=== PATIENT | female | born 1980 | race Caucasian/White ===

== ENCOUNTER → 2016-08-24 | Outpatient (CLI) | payer BC ==
--- NOTE | 2016-08-24 15:49 | US ---
August 24, [address] Weber and Providers at [facility], Thank you for requesting consultation and a follow up ultrasound for your patient, Mrs. Addison cox. As you know, Farnaz is a 36 year old G 3, P 1011 . Her due date is 11/10/16 by LMP and 12 week ultrasound. Her current gestational age based on this dating is is 28 weeks 6 days. She is se en today for a follow up of renal pelvis dilation. She was seen on 06/30/16 for two ultrasound findi ngs-bilateral pyelectasis and choroid plexus cysts in the setting of reassuring NIPT. After consulta tion with Dr. Langston they were offered and declined invasive testing. ULTRASOUND Number of fetuses: 1 Placental location: Anterior presentation: Cephalic Heart Rate: 139 bpm Cervix: 3.9 cm viewed transabdominally Maximum vertical pocket: 8.0 cm Measurements: Biparietal diameter: 70 mm 28 weeks, 3 days Head circumference: 283 mm 31 weeks, 0 days Abdominal circumference: 260 mm 30 weeks, 2 days Femur length: 53 mm 28 weeks, 3 days Humerus length: 48 mm 28 weeks, 3 days Transcerebellar diameter: 35 mm 29 weeks, 3 days Average age by ultrasound: 29 weeks, 4 days Estimated weight: 1405 gm weight percentile: 62 % ANATOMY anatomy was previously assessed. Today the following structures were visualized and appeared n ormal: Lateral ventricle, choroids, cerebellum, views of the heart, stomach, profile, and bladder. The right renal pelvis is slightly enlarged at 5 mm. The left renal pelvis has improved and is also 5 mm. Both are borderline enlarged for this gestational age. IMPRESSION: 1. Intrauterine at 28 weeks, 6 days; ALLI of 11/10/16. 2. growth is appropriate size for dates. 3. anatomy was previously assessed and today's ultrasound continues to provide reassurance of normal appearing anatomy with borderline bilateral pyelectasis. 4. Normal amniotic fluid volume RECOMMENDATIONS: I was pleased to review today's ultrasound with your patient. I reassured her that growth is normal at the 62 %ile for this gestational age. The amniotic fluid volume is normal. We performed a review of the anatomy which was limited by gestational age and acoustic shadowing which did not revea l any overt abnormalities, but continues to demonstrate borderline renal pelvis dilation bilate rally. I suspect that as the continues and with growth, the pyelectasis will improve . I asked her to return at 34 weeks. If <7 mm, then no follow up is recommended. If > 7m m then the pediatric team should be notified for follow up. Thank you for allowing us the opportunity to evaluate your patient. Should you have any further ques tions or concerns please do not hesitate to contact me. Approximately 15 minutes were spent with the patient and 10 minutes were spent in face to face consu ltation. Sheri Orozco MD Software Engineer [employer] Maternal Medicine Diagnosis Department of Obstetrics & Gynecology [facility] ([place], [place])
--- NOTE | 2016-08-24 18:57 | US ---
Ultrasound Obstetric Follow Up Indication: Advanced maternal age. The estimated gestational age by LMP is 28 weeks and 6 days anila bolton an EDC of 11/10/2016. Comparison: June 2016 Findings: Number: 1 Presentation: Vertex Placental Location: Anterior Cervix: 3.9 cm Amniotic MVP: 8 cm BIOMETRY: Biparietal Diameter: 70.47 mm 28 weeks, 3 days Head Circumference: 282.55 mm 31 weeks, 0 days Abdominal Circumference: 259.94 mm 30 weeks, 2 days Femur Length: 53.40 mm 28 weeks, 3 days Humerus Length: 48.40 mm 28 weeks, 3 days Transcerebellar Diameter: 35.20 mm 29 weeks, 3 days HC/AC: 1.09 (1.05-1.22) FL/BPD: 76% FL/AC: 21% Average Ultrasound Age: 29 weeks, 4 days EDC based on today's average ultrasound age: 411/05/2016 Estimated weight is 1405 gms +/- 205 gms. The estimated weight is at the 62 % based on pr evious dating. ANATOMY: Previous evaluated. FHR 139 bpm. Today's anatomy includes lateral ventricles, heart, stomach, and bladder without abnorma lities. Right renal pelvis slightly enlarged at 5 mm. Left renal pelvis is also slightly enlarged at 5 mm. Impression: 1. Living eisenberg in vertex presentation. 2. Size concordant with dates. 3. Borderline bilateral pelviectasis at 5 mm. 4. Normal amniotic fluid volume. 5. Please see Dr. Sheri Orozco's consult and recommendations.
== END ==
LOC: FIMAGING 14:42
PROVIDERS: ATTEND Obstetrics & Gynecology
DX: O35.9XX0 Maternal care for (suspected) fetal abnormality and damage, unspecified, not applicable or unspecified (principal); O09.523 Supervision of elderly multigravida, third trimester; Z3A.28 28 weeks gestation of pregnancy

== ENCOUNTER → 2016-10-01 | Outpatient (CLI) | payer BC | LOC: FIMAGING 13:29 | PROVIDERS: ATTEND Obstetrics & Gynecology | DX: O09.523 Supervision of elderly multigravida, third trimester (principal); Z3A.34 34 weeks gestation of pregnancy ==

== ENCOUNTER 2016-11-11 20:56 | Inpatient (IN) | payer BC ==
--- NOTE | 2016-11-11 22:30 | GHP ---
[f rep st] PREOP HISTORY AND PHYSICAL DATE OF ADMISSION: 11/11/2016 ADMITTING DIAGNOSIS: A 36-year-old, 3, para 1-0-1-1, IUP at 40 weeks 1 day, complaining of painful contractions since 6 p.m. this evening. HISTORY OF PRESENT COMPLAINT: The patient states has had intermittent contractions since having membranes stripped in office on Wednesday. States starting around 6 p.m. today, contractions increased in strength and intensity, occurring every 3-5 minutes. Reports positive movement. Denies leaking of fluid or vaginal bleeding. Estimated due date of 11/10/2016 per 8-week ultrasound. Patient has received good care at [facility] since 8 weeks of . Complications include AMA status, history of anxiety and panic attacks, asthma, Rh negative status. complications include bilateral dilated renal pelvices and [employer]. Has been followed by MFM. Most recent MFM consult at 34 weeks recommended follow-up with pediatrics . MEDICAL HISTORY: Asthma; Anxiety; Panic attacks; Anemia. SURGICAL HISTORY: Laparoscopy in 2008 for endometriosis; Left breast biopsy. MEDICATIONS: vitamins, iron. ALLERGIES: Doxycycline - causes hives. GYNECOLOGIC HISTORY: Endometriosis. Abnormal Pap, 2015. Denies history of STDs. SOCIAL HISTORY: Ashkenazi Muslim heritage. . Denies alcohol, tobacco or drug use. FAMILY HISTORY: Mother with asthma and anxiety. Paternal grandmother with colon cancer. Paternal grandfather with prostate cancer. OBSTETRICAL HISTORY: 2002, elective . 05/07/2013, , female, 8 pounds 4 ounces, full-term induction of labor, complicated by a midline episiotomy due to distress. LABS: O negative. Antibody negative. HIV negative. Hepatitis B negative. Syphilis negative. Rubella immune. Verifi negative. CF screen negative. Ashkenazi Muslim panel negative. GBS negative per patient. PHYSICAL EXAM: VITAL SIGNS: On physical exam, vital signs are stable. GENERAL APPEARANCE: Alert and oriented x3. HEART: Rate regular. LUNGS: Clear to auscultation bilaterally. ABDOMEN: Gravid, nontender. SVE: 4/80/-2 , cephalic lie. heart tracing: Category 1. heart tones 155, moderate variability, positive accelerations, neg decels. Contractions every 2- 4 minutes, moderate to palpation. Intact. ASSESSMENT: 36-year-old, 3, para 1-0-1-1, intrauterine at 40 weeks 1 day, with regular uterine contractions. PLAN: 1. Continue maternal monitoring. 2. Walk, position changes. 3. Recheck SVE in 2 hours for cervical change. 4. Discussed plan of care with Dr. Dobbins, attending. /[id number]/MODL MTDD
[2016-11-11] MEDS ORDERED: LIDOCAINE 1% 30 ML SDV ONE (22:49)
[2016-11-11] MEDS ORDERED: OLIVE OIL 118 ML BTL ONE (22:49)
[2016-11-11] MEDS ORDERED: AMMONIA AROMATIC 1 EACH AMP IH ONE (22:50)
[2016-11-11] MEDS ORDERED: TERBUTALINE SULFATE 1 MG/ML VIAL ONE (22:50)
[2016-11-11] MEDS ORDERED: OXYTOCIN 10 UNIT/ML VIAL ONE (22:50)
[2016-11-11] MEDS ORDERED: MISOPROSTOL 200 MCG TAB ONE (22:51)
[2016-11-11] MEDS ORDERED: OXYTOCIN/RINGERS LACTATE 1,000 ML IV PRN (22:52)
[2016-11-11] MEDS ORDERED: OLIVE OIL 118 ML BTL MISC PRN (22:52)
[2016-11-11] MEDS ORDERED: LR 1,000 ML IV PRN (22:52)
[2016-11-11] MEDS ORDERED: EPSOM SALT 454 GM TP PRN (22:52)
[2016-11-11] MEDS ORDERED: TERBUTALINE SULFATE 1 MG/ML VIAL IV PRN (22:52)
[2016-11-11] MEDS ORDERED: LIDOCAINE 1% 30 ML SDV SC PRN (22:52)
[2016-11-11 23:05] LABS: % IMMATURE GRANULYOCYTES 0.7 % (0.0-1.1); ABSOLUTE IMMATURE GRANULOCYTES 0.12 10^3/uL (0.00-0.10); ADD DIFF? NO; ADD MORPH? NO; ADD SCAN? NO; ATYPICAL LYMPHOCYTE FLAG 0 (0-99); FRAGMENT RBC FLAG 0 (0-99); HEMATOCRIT 37.1 % (38.0-47.0); HEMOGLOBIN 13.1 g/dL (12.6-16.3); LEFT SHIFT FLG 0 (0-99); LIPEMIA HEMOLYSIS FLAG 90 (0-99); MEAN CELL HEMOGLOBIN 30.5 pg (27.9-34.1); MEAN CELL HEMOGLOBIN CONCENTR. 35.3 g/dL (32.4-36.7); MEAN CELL VOLUME 86.5 fL (81.5-99.8); MEAN PLATELET VOLUME 10.3 fL (8.7-11.7); PLATELET CLUMPS FLAG 10 (0-99); PLATELET COUNT 154 10^3/uL (150-400); RED BLOOD CELL COUNT 4.29 10^6/uL (4.18-5.33); RED CELL DISTRIBUTION WIDTH 13.2 % (11.5-15.2)
[2016-11-11] MEDS ORDERED: fentaNYL 100 MCG/2 ML INJ ONE (23:17)
[2016-11-11] MEDS ORDERED: fentaNYL 2MCG/ML/BUP 0.1% RTU 100 ML BAG EP ONE (23:18)
--- NOTE | 2016-11-11 23:18 | OBPROG ---
OBG Progress Note Assessment/Plan: Assessment: 36y/o IUP @40w1d in active labor FH Tracing Cat 1 Plan: Admit to floor NOB orders Epidural for pain mgmt per pt req Consider AROM s/p epidural Con't maternal/ monitoring Expectant mgmt of labor Disc POC with Dr. Dobbins, attending 11/11/16 23:14 Subjective: Pt c/o increased pain with CTXs, requesting epidural. Tried Nitrous Oxide - pt states caused nausea. Objective: 11/11/16 22:55 - SVE Dilation (cm): 5 (per RN) Effacement (%): 90 Station: -2 Current Contraction Pattern: Regular (q 2-4 min) FHR (bpm): 135 FHR Pattern Variability: Moderate FHR Category: 1 (+accels, -decels) Membranes: Intact ICD10 Worksheet Patient Problems: Problems Problem Status Onset Delivery normal Acute
[2016-11-11] MEDS ORDERED: BUPIVACAINE 0.25% 30 ML SDV ONE (23:38)
[2016-11-12] MEDS ORDERED: ONDANSETRON 4 MG/2 ML VIAL IVP PRN (00:25)
--- NOTE | 2016-11-12 00:50 | OBPROG ---
OBG Progress Note Assessment/Plan: Assessment: 36y/o IUP @40w1d in active labor FH Tracing Cat 1 Plan: Epidural in place AROM, clear @0040 Con't maternal/ monitoring Expectant mgmt of labor Disc POC with Dr. Dobbins, attending 11/12/16 00:47 Subjective: Pt resting, comfortable in bed s/p epidural. FOB at bedside. Objective: 11/11/16 22:55 Patient ABO/Rh O NEGATIVE 11/11/16 22:55 - SVE Dilation (cm): 7 Effacement (%): 90 Station: -1 Current Contraction Pattern: Regular (q 2-6 min) FHR (bpm): 140 FHR Pattern Variability: Moderate FHR Category: 1 (+accels, -decels) Membranes: AROM (@0040) Amniotic Fluid Color: Clear, Blood Tinged ICD10 Worksheet Patient Problems: Problems Problem Status Onset Active labor at term Acute
[2016-11-12] MEDS ORDERED: ACETAMINOPHEN 325 MG TAB PO PRN (03:05)
[2016-11-12] MEDS ORDERED: DOCUSATE SODIUM 100 MG CAP PO PRN (03:05)
[2016-11-12] MEDS ORDERED: HYDROCORTISONE 0.5% CREAM TP PRN (03:05)
[2016-11-12] MEDS ORDERED: SIMETHICONE 80 MG TAB CHEW PO PRN (03:05)
[2016-11-12] MEDS: IBUPROFEN 600 MG TAB PO PRN ×3 (03:11→16:46)
--- NOTE | 2016-11-12 03:12 | OBPROC ---
- Labor and Delivery Onset of Contractions Date: 11/11/16 Onset of Contractions Time: 18:00 Onset of Contractions Type: Spontaneous Rupture of Membranes Date: 11/12/16 Rupture of Membranes Time: 00:39 Rupture of Membranes Type: Artificial Amniotic Fluid Color: Clear, Blood Tinged Dilation Complete Time: 02:02 Delivery Type: Spontaneous Placenta Delivery Date: 11/12/16 Placenta Delivery Time: 02:34 Episiotomy/Laceration: Other (Specify) (L labial, repaired by Dr. Dobbins) Repair: 3-0, Vicryl (x1) EBL: 400 Complications: None - Medications Labor Augmentation/Induction Meds Used: None Anesthesia: Epidural - Mill[place] Info Infant A Delivery Date: 11/12/16 Delivery Time: 02:25 Sex of : Female Score (1 Min): 8 Score (5 Min): 9
[2016-11-12] MEDS ORDERED: PHENYLEPHRINE HCL 100 MCG/ML SYR IVP PRN (04:54)
[2016-11-12] MEDS ORDERED: LR 500 ML IV SCH (05:00)
[2016-11-12] MEDS: HYDROCODONE/APAP 5/325 TAB PO PRN ×3 (08:01→19:22)
[2016-11-12 08:39] VITALS: O2SAT 95
[2016-11-13] MEDS: IBUPROFEN 600 MG TAB PO PRN ×2 (02:25→08:39)
[2016-11-13 06:56] LABS: ABSOLUTE IMMATURE GRANULOCYTES 0.13 10^3/uL (0.00-0.10); ADD DIFF? NO; ADD MORPH? NO; ADD SCAN? NO; ATYPICAL LYMPHOCYTE FLAG 0 (0-99); FRAGMENT RBC FLAG 0 (0-99); HEMATOCRIT 31.1 % (38.0-47.0); HEMOGLOBIN 10.7 g/dL (12.6-16.3); LEFT SHIFT FLG 0 (0-99); LIPEMIA HEMOLYSIS FLAG 90 (0-99); MEAN CELL HEMOGLOBIN 30.4 pg (27.9-34.1); MEAN CELL HEMOGLOBIN CONCENTR. 34.4 g/dL (32.4-36.7); MEAN CELL VOLUME 88.4 fL (81.5-99.8); MEAN PLATELET VOLUME 10.2 fL (8.7-11.7); PLATELET CLUMPS FLAG 0 (0-99); PLATELET COUNT 141 10^3/uL (150-400); RED BLOOD CELL COUNT 3.52 10^6/uL (4.18-5.33); RED CELL DISTRIBUTION WIDTH 13.4 % (11.5-15.2)
[2016-11-13 11:47] VITALS: BP 100/70; PULSE 81; RESP 16; TEMP 97.4
--- NOTE | 2016-11-13 13:43 | SOAPPROG ---
SOAP Progress Note Assessment/Plan: Assessment: p2 ppd #1 s/p breast feeding Plan: routine post careand discharge instructions 11/13/16 13:34 Objective: Vital Signs Temp Pulse Resp BP Pulse Ox 36.3 C 81 16 100/70 95 11/13/16 08:30 11/13/16 08:30 11/13/16 08:30 11/13/16 08:30 11/12/16 20:10 Laboratory Results 11/13/16 05:45 11/12/16 11/13/16 11/14/16 05:59 05:59 05:59 Output Total 400 Balance -400 Physical Exam - Physical Exam General Appearance: WD/WN, alert, no apparent distress Respiratory: chest non-tender, lungs clear, normal breath sounds Cardiac/Chest: normal peripheral pulses, regular rate, rhythm Abdomen: normal bowel sounds, non-tender, soft, other Skin: normal color, warm/dry Extremities: normal range of motion, non-tender, normal inspection, normal capillary refill Neuro/Psych: no motor/sensory deficits, alert, normal mood/affect, oriented x 3 ICD10 Worksheet Patient Problems: Problems Problem Status Onset (spontaneous vaginal delivery) Acute
== END 2016-11-13 14:30 | disposition home or self-care (01) | DRG 775 ==
LOC: OBSVTOIN 20:56 → FLD 20:56 → FOB 11-12 04:45
PROVIDERS: ADMIT Obstetrics & Gynecology; ATTEND Obstetrics & Gynecology
PROC: 3E0234Z Introduction of Serum, Toxoid and Vaccine into Muscle, Percutaneous Approach (ICD-10-PCS; principal; 2016-11-12)
PROC: 10907ZC Drainage of Amniotic Fluid, Therapeutic from Products of Conception, Via Natural or Artificial Opening (ICD-10-PCS; principal; 2016-11-12)
PROC: 10E0XZZ Delivery of Products of Conception, External Approach (ICD-10-PCS; principal; 2016-11-12)
PROC: 0HQ9XZZ Repair Perineum Skin, External Approach (ICD-10-PCS; 2016-11-12)
DX: O48.0 Post-term pregnancy (principal); O70.0 First degree perineal laceration during delivery; O26.893 Other specified pregnancy related conditions, third trimester; Z67.91 Unspecified blood type, Rh negative; Z3A.40 40 weeks gestation of pregnancy; Z37.0 Single live birth
CPT/HCPCS: J2405; J2590; J3010; J3105

== ENCOUNTER → 2016-11-19 | Outpatient (CLI) | payer BC | LOC: FLACT 10:14 | PROVIDERS: ATTEND Obstetrics & Gynecology | DX: O92.29 Other disorders of breast associated with pregnancy and the puerperium (principal) | CPT/HCPCS: G0463 ==

== ENCOUNTER → 2018-07-07 | Outpatient (CLI) | payer BC | END | disposition home or self-care (01) | LOC: BRMIMAGING 08:56 | PROVIDERS: ATTEND Obstetrics & Gynecology | DX: R92.8 Other abnormal and inconclusive findings on diagnostic imaging of breast (principal) ==